=== PATIENT | male | born 1965 | race Caucasian/White ===

== ENCOUNTER 2017-02-06 00:33 | Emergency (ER) | payer OTHER, BC ==
[~2017-02-06 00:33] MED LIST: ALEVE220 M1 PO; ALLOPURINOL100 MG PO; ALLOPURINOL300 MG PO; AMLODIPINE BESY10 MG PO; AMLODIPINE BESYL5 MG; ASPIRIN EC325 MG PO; ATORVASTATIN CA10 MG; ATORVASTATIN CA40 MG PO; COLCRYS0.6 MG PO; EFFIENT10 MG PO; HYDROCODON-ACE1 EA11 PO; INDOMETHACIN50 MG PO; LISINOPRIL; LISINOPRIL40 MG; METOPROLOL SUCC50 MG PO; NORCO 5-325 TA1 EACH PO; PERCOCET 5-3251 EACH PO; ROBAXIN-750750 MG PO; SERTRALINE HCL25 MG PO; TOPROL XL50 MG PO
[2017-02-06] MEDS ORDERED: NORCO 5-325 TA1 EACH PO (02:15)
--- NOTE | 2017-02-06 18:24 | EKG ---
[facility] [address] [place] [address] Signed Normal sinus rhythm T wave abnormality, consider inferior ischemia Abnormal ECG When compared with ECG of 01-JUN-2016 02:45, No significant change was found Confirmed by JOYCE MICHEL MD ([id number]) on 02/06/2017 6:24:49 PM Electronically Signed By: JOYCE MICHEL MD 02/06/17 1824 PATIENT NAME: FRANDYMARKUS MELBA Electrocardiogram DATE OF : 65 PHYSICIAN: JOYCE MICHEL MD REPORT #: [id number] REPORT IS CONFIDENTIAL AND NOT TO BE RELEASED WITHOUT AUTHORIZATION
== END 2017-02-06 02:36 | disposition home or self-care (01) ==
LOC: ED 00:33
DX: S29.012A Strain of muscle and tendon of back wall of thorax, initial encounter (principal); I10 Essential (primary) hypertension; I25.2 Old myocardial infarction; X50.9XXA Other and unspecified overexertion or strenuous movements or postures, initial encounter; Y99.0 Civilian activity done for income or pay; Z88.5 Allergy status to narcotic agent; Z79.899 Other long term (current) drug therapy; Z79.891 Long term (current) use of opiate analgesic; Z79.82 Long term (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
CPT/HCPCS: 71020; 93005; 93010; 99283

== ENCOUNTER 2017-03-26 17:20 | Emergency (ER) | payer BC ==
[~2017-03-26] VITALS: Ht 177.8 cm; Wt 108.9 kg
[2017-03-26] MEDS ORDERED: TRAMADOL HCL50 MG PO (18:10)
[2017-03-26] MEDS ORDERED: CYCLOBENZAPRINE10 MG PO (18:10)
== END 2017-03-26 18:40 | disposition home or self-care (01) ==
LOC: ED 17:20
DX: G44.209 Tension-type headache, unspecified, not intractable (principal); I25.2 Old myocardial infarction; I10 Essential (primary) hypertension; E66.9 Obesity, unspecified; Z88.8 Allergy status to other drugs, medicaments and biological substances; Z79.899 Other long term (current) drug therapy; Z79.82 Long term (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
CPT/HCPCS: 96372; 99283; J1885

== ENCOUNTER 2017-06-22 13:29 | Emergency (ER) | payer BC ==
[~2017-06-22] VITALS: Ht 177.8 cm; Wt 108.9 kg
[~2017-06-22 13:29] MED LIST changes: +CYCLOBENZAPRINE10 MG PO; +TRAMADOL HCL50 MG PO
[2017-06-22] MEDS ORDERED: OXYCODONE HCL5 MG PO (16:58)
[2017-06-22] MEDS ORDERED: ALEVE220 M1 PO (16:58)
== END 2017-06-22 17:25 | disposition home or self-care (01) ==
LOC: ED 13:29
DX: M23.92 Unspecified internal derangement of left knee (principal); I25.2 Old myocardial infarction; I10 Essential (primary) hypertension; E66.9 Obesity, unspecified; Z79.82 Long term (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; Z79.899 Other long term (current) drug therapy; Z88.5 Allergy status to narcotic agent; X50.1XXA Overexertion from prolonged static or awkward postures, initial encounter
CPT/HCPCS: 80053; 85025; 85610; 93971; 99284

== ENCOUNTER 2017-09-17 23:09 | Emergency (ER) | payer OTHER, BC ==
[~2017-09-17] VITALS: Ht 177.8 cm; Wt 108.9 kg
[~2017-09-17 23:09] MED LIST changes: +OXYCODONE HCL5 MG PO
[2017-09-17] MEDS ORDERED: EFFIENT10 MG PO (23:24)
== END 2017-09-17 23:57 | disposition home or self-care (01) ==
LOC: ED 23:09
DX: S60.221A Contusion of right hand, initial encounter (principal); I10 Essential (primary) hypertension; E66.9 Obesity, unspecified; I25.2 Old myocardial infarction; Z87.891 Personal history of nicotine dependence; Z88.5 Allergy status to narcotic agent; Z79.82 Long term (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; Z79.899 Other long term (current) drug therapy; W01.0XXA Fall on same level from slipping, tripping and stumbling without subsequent striking against object, initial encounter; Y92.69 Other specified industrial and construction area as the place of occurrence of the external cause; Y99.0 Civilian activity done for income or pay
CPT/HCPCS: 73130; 99283

== ENCOUNTER 2017-09-20 01:52 | Emergency (ER) | payer OTHER, BC ==
[~2017-09-20] VITALS: Ht 177.8 cm; Wt 108.9 kg
[2017-09-20] MEDS ORDERED: NORCO 5-325 TA1 EACH PO (02:28)
[2017-09-20] MEDS ORDERED: KEFLEX500 MG PO (02:28)
== END 2017-09-20 02:37 | disposition home or self-care (01) ==
LOC: ED 01:52
DX: S62.663A Nondisplaced fracture of distal phalanx of left middle finger, initial encounter for closed fracture (principal); S60.132A Contusion of left middle finger with damage to nail, initial encounter; I25.2 Old myocardial infarction; I10 Essential (primary) hypertension; E66.9 Obesity, unspecified; Z87.891 Personal history of nicotine dependence; Z88.5 Allergy status to narcotic agent; Z79.82 Long term (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; Z79.899 Other long term (current) drug therapy; W01.0XXA Fall on same level from slipping, tripping and stumbling without subsequent striking against object, initial encounter
CPT/HCPCS: 73140; 99283

== ENCOUNTER 2017-12-25 19:49 | Emergency (ER) | payer BC ==
[~2017-12-25] VITALS: Ht 177.8 cm; Wt 98.4 kg
[~2017-12-25 19:49] MED LIST changes: +KEFLEX500 MG PO
--- NOTE | 2017-12-26 11:01 | EKG ---
[facility] [address] [place] [address] Signed Normal sinus rhythm Nonspecific ST abnormality Abnormal ECG When compared with ECG of 06-FEB-2017 00:40, No significant change was found Confirmed by JOYCE MICHEL MD ([id number]) on 12/26/2017 11:01:47 AM Electronically Signed By: JOYCE MICHEL MD 12/26/17 1101 PATIENT NAME: FRANDYMARKUS MELBA Electrocardiogram DATE OF : 65 PHYSICIAN: JOYCE MICHEL MD REPORT #: [id number] REPORT IS CONFIDENTIAL AND NOT TO BE RELEASED WITHOUT AUTHORIZATION
== END 2017-12-25 22:36 | disposition home or self-care (01) ==
LOC: ED 19:49
DX: R07.9 Chest pain, unspecified (principal); I25.2 Old myocardial infarction; I10 Essential (primary) hypertension; Z88.5 Allergy status to narcotic agent; Z79.899 Other long term (current) drug therapy; Z79.82 Long term (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
CPT/HCPCS: 71045; 80053; 84484; 85025; 93005; 93010; 96374; 96375; 99284; J2270; J2405

== ENCOUNTER 2018-03-14 00:04 | Emergency (ER) | payer OTHER, BC ==
[~2018-03-14] VITALS: Ht 177.8 cm; Wt 100.7 kg
== END 2018-03-14 01:11 | disposition home or self-care (01) ==
LOC: ED 00:04
DX: T52.8X1A Toxic effect of other organic solvents, accidental (unintentional), initial encounter (principal); I10 Essential (primary) hypertension; I25.2 Old myocardial infarction; E66.9 Obesity, unspecified; Z88.5 Allergy status to narcotic agent; Z79.899 Other long term (current) drug therapy; Y92.89 Other specified places as the place of occurrence of the external cause; Y99.0 Civilian activity done for income or pay
CPT/HCPCS: 99283

== ENCOUNTER 2018-04-15 17:24 | Emergency (ER) | payer BC ==
[~2018-04-15] VITALS: Ht 177.8 cm; Wt 100.7 kg
--- OUTSIDE RECORDS SUMMARY | 2018-04-15 17:28 | XMS ---
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 Matthew has no Care Guidelines for this patient. Care History Medical/Surgical 12/26/2017 [facility] - [facility] called and left patient a voicemail to call back and discuss help with set up with a PCP. Care Recommendation: This patient has had 5 or more Emergency Department visits in the last 12 months. Patient requires education on the scope and purpose of the ED as an acute care provider not a Primary Care Provider and should not be utilized for chronic conditions. If patient returns to ED please contact Community Health WorkerOneyda at [phone]. These are guidelines and the provider should exercise clinical judgment when providing care. E.D. VISIT COUNT (12 MO.) 6 [facility] TOTAL 6 NOTE: Visits indicate total known visits. 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 - Other specified places as the place of occurrence of the external cause - Essential (primary) hypertension - Civilian activity done for income or pay - Obesity, unspecified - Allergy status to narcotic agent status - Toxic effect of other organic solvents, accidental (unintentional), initial encounter 12/25/2017 19:50 [facility] [place] TYPE: Emergency COMPLAINT: - HIGH BLOOD PRESSURE/CHEST PAIN/ HEADACHE DIAGNOSES: - Allergy status to narcotic agent status - Old myocardial infarction - custodial (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 - Other jail (current) drug therapy - Chest pain, unspecified - Essential (primary) hypertension 09/20/2017 01:53 [facility] [place] TYPE: Emergency COMPLAINT: - BRUISING/PAIN LT MIDDLE FINGER DIAGNOSES: - Allergy status to other drugs, medicaments and biological substances status - Old myocardial infarction - custodial (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 - Contusion of left middle finger with damage to nail, initial encounter - Personal history of urinary calculi - Essential (primary) hypertension - Nondisplaced fracture of distal phalanx of left middle finger, initial encounter for closed fracture - Obesity, unspecified - 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 - Personal history of nicotine dependence - Fall on same level from slipping, tripping and stumbling without subsequent striking against object, initial encounter - Laceration without foreign body of left middle finger with damage to nail, initial encounter - Allergy status to narcotic agent status 09/17/2017 23:10 [facility] [place] TYPE: Emergency COMPLAINT: - RT HAND PAIN/SWELLING DIAGNOSES: - custodial (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 - Other specified soft tissue disorders - Fall on same level from slipping, tripping and stumbling without subsequent striking against object, initial encounter - Essential (primary) hypertension - Obesity, unspecified - 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 [place] TYPE: Emergency COMPLAINT: - L KNEE PAIN/NO INJURY DIAGNOSES: - Allergy status to narcotic agent status - OVEREXERTION FROM PROLONGED STATIC OR AWKWARD POST - Pain in left knee - Unspecified internal derangement of left knee - Old myocardial infarction - Obesity, unspecified - Other jail (current) drug therapy - Essential (primary) hypertension - Unspecified internal derangement of left knee - custodial (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 INPATIENT VISIT TRACKING (12 MO.) No inpatient visits to display in this time frame [email or web address]
--- NOTE | 2018-04-17 21:02 | EKG ---
[facility] [address] [facility] [place], [place] [address] Signed Normal sinus rhythm Nonspecific ST and T wave abnormality Abnormal ECG When compared with ECG of 25-DEC-2017 19:56, No significant change was found Confirmed by RO SIMS DO ([id number]) on 04/17/2018 9:02:06 PM Electronically Signed By: RO SIMS DO 04/17/182101 PATIENT NAME: FRANDYMARKUS Electrocardiogram DATE OF : 65 PHYSICIAN: RO SIMS DO REPORT #: [id number] REPORT IS CONFIDENTIAL AND NOT TO BE RELEASED WITHOUT AUTHORIZATION
--- NOTE | 2018-04-17 21:03 | EKG ---
[facility] [address] [facility] [place] [address] Signed Normal sinus rhythm with sinus arrhythmia Incomplete left bundle branch block ST depression, consider subendocardial injury Cannot rule out Posterior infarct Abnormal ECG When compared with ECG of 15-APR-2018 17:30, (Unconfirmed) Incomplete left bundle branch block is now present ST no longer depressed in Inferior leads ST now depressed in Anterolateral leads Confirmed by RO SIMS DO ([id number]) on 04/17/2018 9:03:29 PM Electronically Signed By: RO SIMS DO 04/17/182102 PATIENT NAME: MARKUS WISE Electrocardiogram DATE OF : 65 PHYSICIAN: RO SIMS DO REPORT #: [id number] REPORT IS CONFIDENTIAL AND NOT TO BE RELEASED WITHOUT AUTHORIZATION
== END 2018-04-15 19:50 | disposition short-term general hospital (02) ==
LOC: ED 17:24
DX: I20.0 Unstable angina (principal); Z88.5 Allergy status to narcotic agent; Z79.899 Other long term (current) drug therapy; Z79.82 Long term (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
CPT/HCPCS: 71045; 80053; 84484; 85025; 85610; 85730; 93005; 93010; 96374; 96375; 99285; J1644; J2270; J2405

== ENCOUNTER 2018-09-12 00:35 | Emergency (ER) | payer BC ==
[~2018-09-12] VITALS: Ht 177.8 cm; Wt 100.7 kg
[~2018-09-12 00:35] MED LIST changes: +CATAPRES0.1 MG PO; +CEPHALEXIN500 MG PO; +CHILDREN'S ASPI81 M1 PO; +DILAUDID2 MG PO; +FLOMAX0.4 MG PO; +LISINOPRIL10 MG PO; +ZOFRAN ODT4 MG PO
--- OUTSIDE RECORDS SUMMARY | 2018-09-12 00:38 | XMS ---
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 Care History Medical/Surgical 12/26/2017 [facility] - W called and left patient a voicemail to [...] ED please contact Community Health WorkerOneyda at [phone]. These are guidelines and the provider should exercise clinical judgment when providing care. E.D. VISIT COUNT (12 MO.) 9 [facility] TOTAL 9 NOTE: Visits indicate total known visits. 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 - Obesity, unspecified - Old myocardial infarction - Allergy status to narcotic agent status - Chest pain, unspecified - Other rn long term care (current) drug therapy - Essential (primary) hypertension 06/23/2018 18:52 [facility] [place] TYPE: Emergency COMPLAINT: - CHEST PAIN DIAGNOSES: - Chest pain, unspecified - Allergy status to narcotic agent status - Other detention (current) drug therapy - Old myocardial infarction - Essential (primary) hypertension - 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 - Other chest pain - Obesity, unspecified 05/17/2018 01:46 [facility] [place] TYPE: Emergency COMPLAINT: - VOMITING/ABD PAIN DIAGNOSES: - Obesity, unspecified - Allergy status to narcotic agent status - Hydronephrosis with renal and ureteral calculous obstruction - Unspecified abdominal pain - Other rn long term care (current) drug therapy - Essential (primary) hypertension 04/15/2018 17:24 [facility] [place] TYPE: Emergency COMPLAINT: - CHEST PAIN DIAGNOSES: - Other rn long term care (current) drug therapy - 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 - Unstable angina - Allergy status to narcotic agent status - Chest pain, unspecified 03/14/2018 00:05 [facility] [place] TYPE: Emergency COMPLAINT: - POSS POSIONING INGESTION-WC DIAGNOSES: - Encounter for observation for other suspected diseases and conditions ruled out - Old myocardial infarction - Other detention (current) drug therapy - Other specified places [...] agent status - Old myocardial infarction - 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 - Other detention (current) drug therapy - Chest pain, unspecified - Essential (primary) hypertension 09/20/2017 01:53 [facility] [place] TYPE: Emergency COMPLAINT: - BRUISING/PAIN LT MIDDLE FINGER DIAGNOSES: - Allergy status to other drugs, medicaments and biological substances status - Old myocardial infarction - 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 - Contusion of left middle finger with damage to nail, initial encounter - Personal history of urinary calculi - Essential (primary) hypertension - Nondisplaced fracture of distal phalanx of left middle finger, initial encounter for closed fracture - Obesity, unspecified - Other rn long term care (current) drug therapy - Personal history of nicotine dependence - Fall on same level from slipping, tripping and stumbling without subsequent striking against object, initial encounter - Laceration without foreign body of left middle finger with damage to nail, initial encounter - Allergy status to narcotic agent status 09/17/2017 23:10 [facility] [place] TYPE: Emergency COMPLAINT: - RT HAND PAIN/SWELLING DIAGNOSES: - 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 - Other specified soft tissue disorders - Fall on same level from slipping, tripping and stumbling without subsequent striking against object, initial encounter - Essential (primary) hypertension - Obesity, unspecified - Other rn long term care (current) drug therapy - Old myocardial infarction - Civilian activity done for income or pay - Personal history of nicotine dependence - Allergy status to narcotic agent status - Other specified industrial and construction area as the place of occurrence of the external cause - Contusion of right hand, initial encounter INPATIENT VISIT TRACKING (12 MO.) 06/23/2018 22:[address] [facility] TYPE: Intensive Care DIAGNOSES: - Chest Pain - Unstable angina 04/15/2018 20:[address] [facility] TYPE: Intensive Care DIAGNOSES: - Atherosclerotic heart disease of [place] coronary artery without angina pectoris - Essential (primary) hypertension - Old myocardial infarction - nstemi - Non-ST elevation (NSTEMI) myocardial infarction - Chest pain - Mixed hyperlipidemia - Gout, unspecified [email or web address]
[2018-09-12] MEDS ORDERED: CLOPIDOGREL75 MG PO (00:48)
[2018-09-12] MEDS ORDERED: ACETAMINOPHEN-1 EAC1 PO (01:15)
== END 2018-09-12 01:33 | disposition home or self-care (01) ==
LOC: ED 00:35
DX: M25.511 Pain in right shoulder (principal); I25.2 Old myocardial infarction; I10 Essential (primary) hypertension; E66.9 Obesity, unspecified; Z95.5 Presence of coronary angioplasty implant and graft; Z88.8 Allergy status to other drugs, medicaments and biological substances; Z79.899 Other long term (current) drug therapy; Z79.82 Long term (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
CPT/HCPCS: 99283

== ENCOUNTER 2018-10-08 23:48 | Emergency (ER) | payer BC ==
[~2018-10-08] VITALS: Ht 177.8 cm; Wt 93.9 kg
[~2018-10-08 23:48] MED LIST changes: +ACETAMINOPHEN-1 EAC1 PO; +CLOPIDOGREL75 MG PO
--- OUTSIDE RECORDS SUMMARY | 2018-10-08 23:50 | XMS ---
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 - Has Care Guidelines - [facility] - 2 Visits in 30 Days CARE PROVIDERS MADELEINE ANNE Physician Rn First Assist 06/24/2018-Current PHONE: Unknown Matthew has no Care Guidelines for this patient. Care History Medical/Surgical 12/26/2017 [facility] - CHW called and left [...] ED please contact Community Health WorkerOneyda at [phone]. These are guidelines and the provider should exercise clinical judgment when providing care. E.D. VISIT COUNT (12 MO.) 8 [facility] TOTAL 8 NOTE: Visits indicate total known visits. ED/UCC VISIT TRACKING (12 MO.) 10/08/2018 23:49 [facility] [place] TYPE: Emergency COMPLAINT: - SHOULER PAIN NON INJURY 09/12/2018 00:36 [facility] TYPE: Emergency COMPLAINT: - R SHOULDER PAIN,NON INJURY DIAGNOSES: - Essential (primary) hypertension - Presence of coronary angioplasty implant and graft - Other fdc (current) drug therapy - Obesity, unspecified - Pain in right shoulder - Allergy status to other drugs, medicaments and biological substances status - intermediate (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 - Old myocardial infarction 07/09/2018 21:04 [facility] [place] TYPE: Emergency COMPLAINT: - SOB DIAGNOSES: - 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 (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 - Obesity, unspecified - Old myocardial infarction - Allergy status to narcotic agent status - Chest pain, unspecified - Other fdc (current) drug therapy - Essential (primary) hypertension 06/23/2018 18:52 [facility] [place] TYPE: Emergency COMPLAINT: - CHEST PAIN DIAGNOSES: - Chest pain, unspecified - Allergy status to narcotic agent status - Other rn long term care (current) drug therapy - Old myocardial infarction - Essential (primary) hypertension - 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 (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 - Other chest [...] COMPLAINT: - CHEST PAIN DIAGNOSES: - Other fdc (current) drug therapy - 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 (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 - Unstable angina - Allergy status to narcotic agent status - Chest pain, unspecified 03/14/2018 00:05 [facility] [place] TYPE: Emergency COMPLAINT: - POSS POSIONING INGESTION-WC DIAGNOSES: - Encounter for observation for other suspected diseases and conditions ruled out - Old myocardial infarction - Other fdc (current) drug therapy - Other specified places [...] agent status - Old myocardial infarction - intermediate (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 - Other fdc (current) drug therapy - Chest pain, unspecified - Essential (primary) hypertension INPATIENT VISIT TRACKING (12 MO.) 06/23/2018 22:47 [facility] TYPE: Intensive Care DIAGNOSES: - Chest Pain - Unstable angina 04/15/2018 20:49 [facility] TYPE: Intensive Care DIAGNOSES: - Atherosclerotic heart disease of [place] coronary artery without angina pectoris - Essential (primary) hypertension - Old myocardial infarction - nstemi - Non-ST elevation (NSTEMI) myocardial infarction - Chest pain - Mixed hyperlipidemia - Gout, unspecified [email or web address]
== END 2018-10-09 01:25 | disposition home or self-care (01) ==
LOC: ED 23:48
DX: M75.101 Unspecified rotator cuff tear or rupture of right shoulder, not specified as traumatic (principal); I25.2 Old myocardial infarction; I10 Essential (primary) hypertension; E66.9 Obesity, unspecified; Z88.5 Allergy status to narcotic agent; Z79.899 Other long term (current) drug therapy; Z79.82 Long term (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
CPT/HCPCS: 99283

== ENCOUNTER 2018-11-20 18:55 | Emergency (ER) | payer BC ==
[~2018-11-20] VITALS: Ht 177.8 cm; Wt 93.9 kg
--- OUTSIDE RECORDS SUMMARY | 2018-11-20 18:58 | XMS ---
PreManage Notification: MARKUS WISE Security Social Services Aide Events No recent Security Events currently on file CRITERIA MET - [facility] - Has Care Guidelines CARE PROVIDERS MADELEINE ANNE Physician Break Up Worker 06/24/2018-Current PHONE: Unknown Matthew has no Care Guidelines for this patient. Care History Medical/Surgical 12/26/2017 [facility] - W called and left patient a [...] ED please contact Community Health WorkerOneyda at [phone]. These are guidelines and the provider should exercise clinical judgment when providing care. E.D. VISIT COUNT (12 MO.) [address] [facility] TOTAL 9 NOTE: Visits indicate total known visits. ED/UCC VISIT TRACKING (12 MO.) 11/20/2018 18:56 [facility] TYPE: Emergency COMPLAINT: - CHEST PAIN 10/08/2018 23:49 [facility] [place] TYPE: Emergency COMPLAINT: - SHOULER PAIN NON INJURY DIAGNOSES: - Unspecified rotator cuff tear or rupture of right shoulder, not specified as traumatic - Essential (primary) hypertension - Other senior living (current) drug therapy - Old myocardial infarction - Allergy status to narcotic agent status - Obesity, unspecified - manufacturer (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 - Pain in right shoulder 09/12/2018 00:36 [facility] [place] TYPE: Emergency COMPLAINT: - R SHOULDER PAIN,NON INJURY DIAGNOSES: - Essential (primary) hypertension - Presence of coronary angioplasty implant and graft - 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 - Obesity, unspecified - Pain in right shoulder - Allergy status to other drugs, medicaments and biological substances status - senior living (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 - Old myocardial infarction 07/09/2018 21:04 [facility] [place] TYPE: Emergency COMPLAINT: - SOB DIAGNOSES: - manufacturer (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 - Obesity, unspecified - Old myocardial infarction - Allergy status to narcotic agent status - Chest pain, unspecified - Other senior living (current) drug therapy - Essential (primary) hypertension 06/23/2018 18:52 [facility] TYPE: Emergency COMPLAINT: - CHEST PAIN DIAGNOSES: - Chest pain, unspecified - Allergy status to narcotic agent status - Other senior living (current) drug therapy - Old myocardial infarction - Essential (primary) hypertension - manufacturer (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 - Other chest pain - Obesity, unspecified 05/17/2018 01:46 [facility] [place] TYPE: Emergency COMPLAINT: - VOMITING/ABD PAIN DIAGNOSES: - Obesity, unspecified - Allergy status to narcotic agent status - Hydronephrosis with renal and ureteral calculous obstruction - Unspecified abdominal pain - 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 - Essential (primary) hypertension 04/15/2018 17:24 [facility] TYPE: Emergency COMPLAINT: - CHEST PAIN DIAGNOSES: - 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 - senior living (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 - Unstable angina - Allergy status to narcotic agent status - Chest pain, unspecified 03/14/2018 00:05 [facility] [place] TYPE: Emergency COMPLAINT: - POSS POSIONING INGESTION-WC DIAGNOSES: - Encounter for observation for other suspected diseases and conditions ruled out - Old myocardial infarction - Other senior living (current) drug therapy - Other specified places as the place of occurrence of the external cause - Essential (primary) hypertension - Civilian activity done for income or pay - Obesity, unspecified - Allergy status to narcotic agent status - Toxic effect of other organic solvents, accidental (unintentional), initial encounter 12/25/2017 19:50 [facility] TYPE: Emergency COMPLAINT: - HIGH BLOOD PRESSURE/CHEST PAIN/ HEADACHE DIAGNOSES: - Allergy status to narcotic agent status - Old myocardial infarction - senior living (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 - Other senior living (current) drug therapy - Chest pain, unspecified - Essential (primary) hypertension INPATIENT VISIT TRACKING (12 MO.) [facility]AG[facility]ES: - Chest Pain - Unstable angina [facility] DIAGNOSES: - Atherosclerotic heart disease of [place] coronary artery without angina pectoris - Essential (primary) hypertension - Old myocardial infarction - nstemi - Non-ST elevation (NSTEMI) myocardial infarction - Chest pain - Mixed hyperlipidemia - Gout, unspecified [email or web address]
--- NOTE | 2018-11-23 08:05 | EKG ---
[facility] [address] [facility] [address] [place] [address] Signed Normal sinus rhythm Nonspecific ST abnormality Abnormal ECG When compared with ECG of 09-JUL-2018 21:10, T wave inversion no longer evident in Inferior leads Confirmed by GALA CANALES MD ([id number]) on 11/23/2018 8:04:52 AM Electronically Signed By: GALA CANALES MD 11/23/18 0805 PATIENT NAME: FRANDYMARKUS MELBA Electrocardiogram DATE OF : 65 PHYSICIAN: GALA CANALES MD REPORT #: [id number] REPORT IS CONFIDENTIAL AND NOT TO BE RELEASED WITHOUT AUTHORIZATION
== END 2018-11-20 21:37 | disposition home or self-care (01) ==
LOC: ED 18:55
DX: R07.9 Chest pain, unspecified (principal); I25.2 Old myocardial infarction; E66.9 Obesity, unspecified; Z95.5 Presence of coronary angioplasty implant and graft; Z88.8 Allergy status to other drugs, medicaments and biological substances; Z79.82 Long term (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; Z79.899 Other long term (current) drug therapy
CPT/HCPCS: 71045; 80053; 84484; 85025; 93005; 93010; 96374; 99285-25; J2270

== ENCOUNTER 2019-03-26 01:41 | Emergency (ER) | payer OTHER, BC ==
[~2019-03-26] VITALS: Ht 177.8 cm; Wt 98.0 kg
[~2019-03-26 01:41] MED LIST changes: +MECLIZINE HCL25 MG PO
--- OUTSIDE RECORDS SUMMARY | 2019-03-26 01:44 | XMS ---
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 Care History Medical/Surgical 11/21/2018 [facility] - PATIENT IS TO ESTABLISH CARE WITH DR MICHEL ON 12/23/2018. - Patient is currently established with [facility]. If patient is seen in the ED during business hours. Please contact CHWs at [facility]. - Care Recommendation: This patient has had 5 or more Emergency Department visits in the last 12 months.\T\nbsp; Patient requires education on the scope and purpose of the ED as an acute care provider not a Primary Care Provider and should not be utilized for chronic conditions.\T\nbsp; These are guidelines and the provider should exercise clinical judgment when providing care. 12/26/2017 [facility] - W called and left patient [...] ED please contact Community Health WorkerOneyda at [phone]. These are guidelines and the provider should exercise clinical judgment when providing care. E.D. VISIT COUNT (12 MO.) 10 [facility] TOTAL 10 NOTE: Visits indicate total known visits. ED/UCC VISIT TRACKING (12 MO.) 03/26/2019 01:42 [facility] [place] TYPE: Emergency COMPLAINT: - FINGER INJURY 03/04/2019 02:06 [facility] [place] TYPE: Emergency COMPLAINT: - BACK PAIN DIAGNOSES: - Essential (primary) hypertension - Old myocardial infarction - Other custodial (current) drug therapy - termite treater helper (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 - Unspecified abdominal pain - Allergy status to narcotic agent status - Personal history of nicotine dependence 02/25/2019 19:32 [facility] [place] TYPE: Emergency COMPLAINT: - DIZZINESS DIAGNOSES: - Dizziness and giddiness - Other predatory animal exterminator (current) drug therapy - Presence of coronary angioplasty implant and graft - Old myocardial infarction - Allergy status to other drugs, medicaments and biological substances status - longterm (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 - Essential (primary) hypertension 11/20/2018 18:56 [facility] [place] TYPE: Emergency COMPLAINT: - CHEST PAIN DIAGNOSES: - Other custodial (current) drug therapy - Old myocardial infarction - Allergy status to other drugs, medicaments and biological substances status - Obesity, unspecified - termite treater helper (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 - Presence of coronary angioplasty implant and graft - Chest pain, unspecified 10/08/2018 23:49 [facility] [place] TYPE: Emergency COMPLAINT: - SHOULER PAIN NON INJURY DIAGNOSES: - Unspecified rotator cuff tear or rupture of right shoulder, not specified as traumatic - Essential (primary) hypertension - Other custodial (current) drug therapy - Old myocardial infarction - Allergy status to narcotic agent status - Obesity, unspecified - longterm (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 - Pain in right shoulder 09/12/2018 00:36 [facility] [place] TYPE: Emergency COMPLAINT: - R SHOULDER PAIN,NON INJURY DIAGNOSES: - Essential (primary) hypertension - Presence of coronary angioplasty implant and graft - Other custodial (current) drug therapy - Obesity, unspecified - Pain in right shoulder - Allergy status to other drugs, medicaments and biological substances status - termite treater helper (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 - Old myocardial infarction 07/09/2018 21:04 [facility] [place] TYPE: Emergency COMPLAINT: - SOB DIAGNOSES: - longterm (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 - Obesity, unspecified - Old myocardial infarction - Allergy status to narcotic agent status - Chest pain, unspecified - Other predatory animal exterminator (current) drug therapy - Essential (primary) hypertension 06/23/2018 18:52 [facility] [place] TYPE: Emergency COMPLAINT: - CHEST PAIN DIAGNOSES: - Chest pain, unspecified - Allergy status to narcotic agent status - Other custodial (current) drug therapy - Old myocardial infarction - Essential (primary) hypertension - longterm (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 - Other chest pain - Obesity, unspecified 05/17/2018 01:46 [facility] [place] TYPE: Emergency COMPLAINT: - VOMITING/ABD PAIN DIAGNOSES: - Obesity, unspecified - Allergy status to narcotic agent status - Hydronephrosis with renal and ureteral calculous obstruction - Unspecified abdominal pain - Other custodial (current) drug therapy - Essential (primary) hypertension 04/15/2018 17:24 [facility] [place] TYPE: Emergency COMPLAINT: - CHEST PAIN DIAGNOSES: - Other custodial (current) drug therapy - longterm (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 - Unstable angina - Allergy status to narcotic agent status - Chest pain, unspecified INPATIENT VISIT TRACKING (12 MO.) 06/23/2018 22:47 [facility] TYPE: Intensive Care DIAGNOSES: - Chest Pain - Unstable angina 04/15/2018 20:49 [facility] TYPE: Intensive Care DIAGNOSES: - Atherosclerotic heart disease of hopi coronary artery without angina pectoris - Essential (primary) hypertension - Old myocardial infarction - nstemi - Non-ST elevation (NSTEMI) myocardial infarction - Chest pain - Mixed hyperlipidemia - Gout, unspecified [email or web address]
[2019-03-26] MEDS ORDERED: KEFLEX500 MG PO (02:39)
== END 2019-03-26 03:00 | disposition home or self-care (01) ==
LOC: ED 01:41
DX: S61.211A Laceration without foreign body of left index finger without damage to nail, initial encounter (principal); I25.2 Old myocardial infarction; I10 Essential (primary) hypertension; Z88.6 Allergy status to analgesic agent; Z79.899 Other long term (current) drug therapy; W22.8XXA Striking against or struck by other objects, initial encounter
CPT/HCPCS: 73140; 99283

== ENCOUNTER 2019-07-23 22:04 | Emergency (ER) | payer BC ==
[~2019-07-23] VITALS: Ht 177.8 cm; Wt 98.0 kg
[~2019-07-23 22:04] MED LIST changes: +ZOLOFT50 MG PO
--- OUTSIDE RECORDS SUMMARY | 2019-07-23 22:08 | XMS ---
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 Care History Medical/Surgical 11/21/2018 [facility] - PATIENT IS TO ESTABLISH CARE WITH DR MICHEL ON 12/23/2018. - Patient is currently established with [facility]. If patient is seen in the ED during business hours. Please contact CHWs at [facility]. - Care Recommendation: This patient has had 5 or more Emergency Department visits in the last 12 months.\T\nbsp; Patient requires education on the scope and purpose of the ED as an acute care provider not a Primary Care Provider and should not be utilized for chronic conditions.\T\nbsp; These are guidelines and the provider should exercise clinical judgment when providing care. 12/26/2017 [facility] called and left patient a voicemail to [...] ED please contact Community Health WorkerOneyda at [phone]. These are guidelines and the provider should exercise clinical judgment when providing care. E.D. VISIT COUNT (12 MO.) 8 [facility] TOTAL 8 NOTE: Visits indicate total known visits. ED/UCC VISIT TRACKING (12 MO.) 07/23/2019 22:05 [facility] [place] TYPE: Emergency COMPLAINT: - CHEST PAIN/SOB/RIGHT ARM PAIN 06/05/2019 22:07 [facility] [place] TYPE: Emergency COMPLAINT: - CHEST PAIN,HEARTBURN DIAGNOSES: - intermediate designer (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 - Other penitentiary (current) drug therapy - Allergy status to oth drug/meds/biol subst status - intermediate designer (current) use of antithrombotics/antiplatelets - Other chest pain - Essential (primary) hypertension 03/26/2019 01:42 [facility] [place] TYPE: Emergency COMPLAINT: - FINGER INJURY DIAGNOSES: - Other terminal manager (current) drug therapy - Old myocardial infarction - Striking against or struck by other objects, init encntr - Laceration w/o fb of l idx fngr w/o damage to nail, init - Allergy status to analgesic agent status - Essential (primary) hypertension 03/04/2019 02:06 [facility] [place] TYPE: Emergency COMPLAINT: - BACK PAIN DIAGNOSES: - Essential (primary) hypertension - Old myocardial infarction - Other penitentiary (current) drug therapy - intermediate designer (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 - Unspecified abdominal pain - Allergy status to narcotic agent status - Personal history of nicotine dependence 02/25/2019 19:32 [facility] [place] TYPE: Emergency COMPLAINT: - DIZZINESS DIAGNOSES: - Dizziness and giddiness - Other penitentiary (current) drug therapy - Presence of coronary angioplasty implant and graft - Old myocardial infarction - Allergy status to oth drug/meds/biol subst status - half-way (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 - Essential (primary) hypertension 11/20/2018 18:56 [facility] [place] TYPE: Emergency COMPLAINT: - CHEST PAIN DIAGNOSES: - Other penitentiary (current) drug therapy - Old myocardial infarction - Allergy status to oth drug/meds/biol subst status - Obesity, unspecified - half-way (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 - Presence of coronary angioplasty implant and graft - Chest pain, unspecified 10/08/2018 23:49 [facility] [place] TYPE: Emergency COMPLAINT: - SHOULER PAIN NON INJURY DIAGNOSES: - Unsp rotatr-cuff tear/ruptr of right shoulder, not trauma - Essential (primary) hypertension - Other terminal manager (current) drug therapy - Old myocardial infarction - Allergy status to narcotic agent status - Obesity, unspecified - intermediate designer (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 - Pain in right shoulder 09/12/2018 00:36 [facility] [place] TYPE: Emergency COMPLAINT: - R SHOULDER PAIN,NON INJURY DIAGNOSES: - Essential (primary) hypertension - Presence of coronary angioplasty implant and graft - Other penitentiary (current) drug therapy - Obesity, unspecified - Pain in right shoulder - Allergy status to oth drug/meds/biol subst status - half-way (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 - Old myocardial infarction INPATIENT VISIT TRACKING (12 MO.) No inpatient visits to display in this time frame [email or web address]
--- NOTE | 2019-07-24 07:17 | EKG ---
[facility] [address] [place], [place] [address] Signed Normal sinus rhythm Nonspecific ST and T wave abnormality Abnormal ECG When compared with ECG of 05-JUN-2019 22:11, No significant change was found Confirmed by GALA CANALES MD ([id number] on 07/24/2019 7:17:01 AM Electronically Signed By: GALA CANALES MD 07/24/19 0717 PATIENT NAME: FRANDYMARKUS MELBA Electrocardiogram DATE OF : 65 PHYSICIAN: GALA CANALES MD REPORT #: [id number] REPORT IS CONFIDENTIAL AND NOT TO BE RELEASED WITHOUT AUTHORIZATION
== END 2019-07-24 01:11 | disposition home or self-care (01) ==
LOC: ED 22:04
DX: R07.9 Chest pain, unspecified (principal); I25.2 Old myocardial infarction; I10 Essential (primary) hypertension; Z79.899 Other long term (current) drug therapy
CPT/HCPCS: 71045; 80053; 83735; 84484; 85025; 93005; 93010; 96374; 99285-25; J2270